=== PATIENT | female | born 1945 | race Caucasian/White ===

== ENCOUNTER 2017-08-25 11:57 | Emergency (ER) | payer MEDICARE, OTHER ==
[2017-08-25 12:20] VITALS: BP 179/71
[2017-08-25] MEDS ORDERED: Albuterol 2.5 MG/3 ML NEB.SOL* (0.083%) INH ONE (12:31)
--- NOTE | 2017-08-25 13:05 | RAD ---
Indication: Cough, fever. 2 views of the chest including dual energy PA views demonstrate no mediastinal shift. Heart is of normal size and configuration. Lung jackson are clear. No alveolar consolidation is noted. Calcified lymph nodes are noted in the right hilum. IMPRESSION: No active cardiopulmonary disease is noted.
--- NOTE | 2017-08-25 13:51 | UC ---
Respiratory Complaint HPI - HPI Summary HPI Summary: Patient presents with complaints of chronic coughing onset around December and then she go better for a few months, but then the symptoms returned. She states that today what really scared her was that woke up and then sat up she couldn't catch her breath for several minutes and she became dizzy for a few minutes also. She states that she has chronic sputum and that is also worse. She states she has worsening SOB with walking just short distances, like three steps. She also states that she has been coughing more than normal. She denies fever, chills, chest pain, nausea, vomiting, or diarrhea. Her niece is with her who also is concerned about her breathing. - History of Current Complaint Chief Complaint: UCRespiratory Stated Complaint: SOB Time Seen by Provider: 08/25/17 12:17 Hx Obtained From: Patient ?: No Onset/Duration: Gradual Onset, Lasting Days Timing: Intermittent Episodes Severity Initially: Moderate Severity Currently: Moderate Character: Cough: Productive Aggravating Factors: Allergens, Exertion, Deep Breaths, Recumbent Position Alleviating Factors: Upright Position, Spontaneous Resolution Associated Signs And Symptoms: Positive: Dyspnea, Wheezing, Dizziness, URI, Nasal Congestion Related History: Seasonal Allergies - Risk Factors Pulmonary Embolism Risk Factors: Smoking Cardiac Risk Factors: Negative Pseudomonas Risk Factors: Chronic Lung Disease Tuberculosis Risk Factors: Negative - Allergies/Home Medications Allergies/Adverse Reactions: Allergies Allergy/AdvReac Type Severity Reaction Status Date / Time Ampicillin Allergy See Comment Verified 08/25/17 12:12 Home Medications: Home Medications Ibuprofen TAB* [Motrin TAB* 800 MG] 08/25/17 [History] PMH/Surg Hx/FS Hx/Imm Hx Previously Healthy: No - asthma/copd Respiratory History: COPD, Asthma, Bronchitis - Surgical History Surgical History: Yes Surgery Procedure, Year, and Place: TUBAL LIGATION, RIGHT UPPER ARM REPAIR X6 ( ALL METAL WAS REMOVED ON LAST SURGERY) - Family History Known Family History: Positive: Cardiac Disease, Other - chf mlc - Social History Occupation: Retired Lives: Alone Alcohol Use: None Substance Use Type: None Smoking Status (MU): Heavy Every Day Tobacco Smoker Amount Used/How Often: 1 PPD Review of Systems Constitutional: Negative Skin: Negative Eyes: Negative ENT: Negative Respiratory: Shortness Of Breath, Cough Genitourinary: Negative All Other Systems Reviewed And Are Negative: Yes Physical Exam Triage Information Reviewed: Yes Appearance: Well-Appearing Vital Signs: Initial Vital Signs Temp 99 F 08/25/17 12:12 Pulse 118 08/25/17 12:12 Resp 20 08/25/17 12:12 BP 179/71 08/25/17 12:12 Pulse Ox 98 08/25/17 12:12 Vital Signs Reviewed: Yes Eye Exam: Normal ENT Exam: Normal Neck exam: Normal Respiratory: Positive: Decreased breath sounds, Wheezing Cardiovascular: Positive: RRR, Tachycardia Abdominal Exam: Normal Neurological Exam: Normal Skin Exam: Normal UC Diagnostic Evaluation - Laboratory O2 Sat by Pulse Oximetry: 98 Respiratory Course/Dx - Course Course Of Treatment: Patient presents with sob, and I feel undiagnosed copd with chronic bronchitis. Chest x-ray was read a no acute disease, and ekg tachycardia. - Differential Dx/Diagnosis Differential Diagnosis/HQI/PQRI: Bronchitis, Exacerbation Of COPD Provider Diagnoses: chronic bronchitis. copd exacerbation Discharge - Discharge Plan Condition: Stable Disposition: HOME Prescriptions: Albuterol HFA INHALER* [Ventolin HFA Inhaler*] 1 - 2 puff INH Q6H PRN #1 mdi PRN Reason: copd Budesonide/Formote 160/4.5(NF) [Symbicort 160/4.5 (NF)] 1 puff INH BID #1 mdi DOXYcycline CAP(*) [DOXYcycline 100MG CAP(*)] 100 mg PO BID #20 cap predniSONE TAB* [Deltasone TAB*] 20 mg PO BID #10 tab Patient Education Materials: COPD (Chronic Obstructive Pulmonary Disease) (ED) , Chronic Bronchitis (ED) Referrals: Jovi Philippe MD [Primary Care Provider] -
== END 2017-08-25 13:46 | disposition home or self-care (01) ==
LOC: UCEAST 11:57
DX: J44.1 Chronic obstructive pulmonary disease with (acute) exacerbation (principal); F17.210 Nicotine dependence, cigarettes, uncomplicated
CPT/HCPCS: 71020; 93005; 99202; G0463